=== PATIENT | female | born 1975 | race Caucasian/White ===

== ENCOUNTER 2018-12-26 05:01 | Emergency (ER) | payer BC, SELFPAY ==
[2018-12-26] VITALS (11 sets, daily range): BP systolic 88–124; BP diastolic 40–75; PULSE 73–102; RESP 16–18; TEMP 36.7–37; O2SAT 96–100; BMI 27.2
--- NOTE | 2018-12-26 05:50 | PC.NURSE ---
Pt has swollen painful left knee with positive Homans sign. Pedal and post tibial pulses are palpable and Cap refill is < 3 sec.
[2018-12-26 06:07] LABS: Basophils % 0.2 % (0.1-2.0); Eosinophils % 0.2 % (0.1-12.0); Hematocrit 33.9 % (37.0-47.0); Hemoglobin 11.1 g/dL (12.2-16.2); Lymphocytes # 0.7 K/mm3 (0.7-4.5); Lymphocytes % 12.5 % (10-50); Mean Corpuscular HGB Conc 32.8 g/dL (31.8-35.4); Mean Corpuscular Hemoglobin 26.5 pg (27.0-31.2); Mean Corpuscular Volume 80.9 fl (81-99); Monocytes # 0.4 K/mm3 (0.1-1.0); Monocytes % 6.6 % (1.7-9.3); Neutrophils # 4.6 K/mm3 (1.8-7.8); Neutrophils % 80.5 % (37.0-80.0); Platelet Count 186 K/mm3 (142-424); Red Blood Count 4.18 M/mm3 (4.20-5.40); Red Cell Distribution Width 15.2 % (11.5-17.5); White Blood Count 5.7 K/mm3 (4.8-10.8)
--- NOTE | 2018-12-26 06:10 | PC.NURSE ---
MERY BUTT at bedside.
[2018-12-26 06:13] LABS: Activated Partial Thrombo Time 25.6 seconds (23.6-34.0); INR 1.04 (0.9-1.1); Prothrombin Time 10.7 seconds (9.4-11.8)
--- NOTE | 2018-12-26 06:15 | NVE_ITS ---
Venous Exam Indications: 729.5 Pain in limb. IMPRESSIONS 1. There is no evidence of significant Reflux. 2. No evidence of deep or superficial vein thrombosis involving the left lower extremity Left lower extremity venous duplex evaluation. Doppler flow study including spectral analysis, color and yeager scale imaging. Location: Vascular laboratory. Patient status: Outpatient. Tables: Venous flow and imaging: + +-------+ + Location Overall Flow properties + +-------+ + Left common femoral Patent Normal phasicity; spontaneous; normal augmentation; compressible + +-------+ + Left saphenofemoral junction Patent Compressible + +-------+ + Left profunda femoral Patent Compressible + +-------+ + Left femoral Patent Normal phasicity; spontaneous; normal augmentation; compressible + +-------+ + Left greater saphenous Patent Normal phasicity; spontaneous; normal augmentation; compressible + +-------+ + Left popliteal Patent Normal phasicity; spontaneous; normal augmentation; compressible + +-------+ + Left posterior tibial Patent Compressible + +-------+ + Left peroneal Patent Compressible + +-------+ + Left gastrocnemius Patent Compressible + +-------+ + Left soleal Patent Compressible + +-------+ + (Report amended ) Electronically signed by: Florencio Guevara [id number]
[2018-12-26 06:16] LABS: Alanine Aminotransferase 23 U/L (12-78); Albumin Level 3.8 gm/dL (3.4-5.0); Albumin/Globulin Ratio 1.1 (1.1-1.8); Alkaline Phosphatase 28 U/L (46-116); Anion Gap 13.9 mEq/L (5-15); Aspartate Amino Transferase 10 U/L (15-37); Bilirubin,Total 0.8 mg/dL (0.2-1.0); Blood Urea Nitrogen 22 mg/dL (7-18); Calcium 8.8 mg/dL (8.5-10.1); Carbon Dioxide 27 mmol/L (21.0-32.0); Chloride 103 mmol/L (98-107); Creatinine Clearance Estimated 109 mL/min (50-200); Creatinine,Serum 0.81 mg/dL (0.55-1.02); Estimated Glomerular Filt Rate 76 ml/min (>60); GFR (African American) 93 ML/MIN (>60); Globulin 3.5 gm/dl (1.3-3.2); Glucose 113 mg/dL (74-106); Potassium 3.9 mmoL/L (3.5-5.1); Sodium 140 mmol/L (136-145); Total Protein,Serum 7.3 gm/dL (6.4-8.2)
--- NOTE | 2018-12-26 06:38 | PC.NURSE ---
Dr. Moeller is speaking to Dr. Mckeon regarding the pt.
--- NOTE | 2018-12-26 06:42 | PC.NURSE ---
Pt aware of need for UA. States she doesn't need to go at this time. ER MD at bedside.
[2018-12-26 06:53] LABS: Erythrocyte Sedimentation Rate 31 mm/hr (0-20)
--- NOTE | 2018-12-26 07:15 | PC.NURSE ---
shift change report received from TYRELL Barone- [facility] ER MD has spoken with ortho court commissioner () and she will be coming in to see the pt in the ER. [facility] staff has notified court commissioner CV lab of doppler order and they should be here around 0830 for doppler on pt.
--- NOTE | 2018-12-26 07:29 | HMH.EDLOEX ---
ED Disposition Clinical Impression: Knee effusion, left Injury of knee, ligament Qualifiers: Encounter type: initial encounter Laterality: left Qualified Code(s): S89.92XA - Unspecified injury of left lower leg, initial encounter Disposition: Home, Self-Care Condition on Discharge: Good Instructions: DI for Knee Pain Additional Instructions: limited wt bearing and follow up with ortho Prescriptions: Tramadol HCl [Ultram 50mg tablet] 50 mg PO TID PRN #15 tab PRN Reason: Moderate To Severe Pain Referrals: Provider,MD Heena [Primary Care Provider] - Selam Russ MD [Staff Physician] - - Critical Care Critical Care Time: No Attestation: On 12/26/18, the high probability of a clinically significant, sudden or life threatening deterioration of the following system(s) required my full and direct attention, intervention and personal management. The time I documented below is in addition to time spent performing reported procedures but includes the following listed in this critical care notation. Medical Decision Making - Medical Records Medical records reviewed: Yes: I reviewed the patient's medical records. - Mark Inquiry Pt receiving controlled substance: No Vital Signs: 12/26/18 05:22 12/26/18 06:02 12/26/18 06:30 Temperature 98.6 F Temperature Source Oral Pulse Rate [Right] 102 H 84 79 Respiratory Rate 18 16 16 Blood Pressure [Right Arm] 103/41 L 88/50 L 89/57 L Blood Pressure Mean [Right Arm] 61 62 67 Blood Pressure Source [Right Arm] Automatic Cuff Automatic Cuff Automatic Cuff Blood Pressure Position [Right Arm] Sitting Sitting Sitting 02 Sat by Pulse Oximetry 100 98 99 Oxygen Delivery Method Room Air Room Air Room Air 12/26/18 07:00 12/26/18 07:57 12/26/18 08:22 Temperature Temperature Source Pulse Rate [Right] 77 75 84 Respiratory Rate 18 18 18 Blood Pressure [Right Arm] 94/61 L 93/55 L 102/64 L Blood Pressure Mean [Right Arm] 72 67 76 Blood Pressure Source [Right Arm] Automatic Cuff Automatic Cuff Automatic Cuff Blood Pressure Position [Right Arm] Sitting Sitting 02 Sat by Pulse Oximetry 98 97 98 Oxygen Delivery Method Room Air Room Air Room Air - Lab Data Lab results reviewed: Yes: I reviewed the patient's lab results. Lab Results 12/26/18 05:30: WBC 5.7, RBC 4.18 L, Hgb 11.1 L, Hct 33.9 L, MCV 80.9 L, MCH 26.5 L, MCHC 32.8, RDW 15.2, Plt Count 186, MPV 9.0, Neut % (Auto) 80.5 H, Lymph % (Auto) 12.5, [place] % (Auto) 6.6, Eos % (Auto) 0.2, Baso % (Auto) 0.2, Neut # (Auto) 4.6, Lymph # (Auto) 0.7, [place] # (Auto) 0.4, Eos # (Auto) 0.0, Baso # (Auto) 0.0, ESR 31 H 12/26/18 05:30: PT 10.7, INR 1.04, APTT 25.6 12/26/18 05:30: Sodium 140, Potassium 3.9, Chloride 103, Carbon Dioxide 27, Anion Gap 13.9, BUN 22 H, Creatinine 0.81, Estimated Creat Clear 109, Estimated GFR 76, Est GFR ( Amer) 93, Glucose 113 H, Calcium 8.8, Total Bilirubin 0.8, AST 10 L, ALT 23, Alkaline Phosphatase 28 L, C-Reactive Protein 4.0 H, Total Protein 7.3, Albumin 3.8, Globulin 3.5 H, Albumin/Globulin Ratio 1.1 Result diagrams: 12/26/18 05:30 12/26/18 05:30 Orders (Tests/Meds): ED MEDICATIONS Discontinued Medications Generic Name Dose Route Start Last Admin Trade Name Freq PRN Reason Stop Dose Admin Sodium Chloride 1,000 mls @ 999 mls/hr 12/26/18 05:45 12/26/18 05:39 Sod Chlor 0.9% 1000ml Bag IV 12/26/18 06:45 999 mls/hr .Q1H1M [place] Administration Ketorolac Tromethamine 30 mg 12/26/18 05:37 12/26/18 05:38 Toradol 30mg/Ml Vial IV 12/26/18 05:38 30 mg ONCE ONE Administration Ondansetron HCl 4 mg 12/26/18 05:37 12/26/18 05:38 Zofran 4mg/2ml Vial IV 12/26/18 05:38 4 mg ONCE ONE Administration ORDERS Category Date Time Status Knee XR left 3 views [XR knee LT 3V] Stat Exams 12/26/18 08:28 Taken Urine , HCG Qual. Stat Lab 12/26/18 05:34 Ordered CA venous doppler LE LT Stat Y 12/26/18 06:15 Ordered - Radiology Data
--- NOTE | 2018-12-26 07:33 | ED_ITS ---
ED Disposition Clinical Impression: Knee effusion, left Injury of knee, ligament Qualifiers: Encounter type: initial encounter Laterality: left Qualified Code(s): S89.92XA - Unspecified injury of left lower leg, initial encounter Disposition: Home, Self-Care Condition on Discharge: Good Instructions: DI for Knee Pain Additional Instructions: limited wt bearing and follow up with ortho Prescriptions: Tramadol HCl [Ultram 50mg tablet] 50 mg PO TID PRN #15 tab PRN Reason: Moderate To Severe Pain Referrals: Provider,MD Heena [Primary Care Provider] - Selam Russ MD [Staff Physician] - - Critical Care Critical Care Time: No Attestation: On 12/26/18, the high probability of a clinically significant, sudden or life threatening deterioration of the following system(s) required my full and direct attention, intervention and personal management. The time I documented below is in addition to time spent performing reported procedures but includes the following listed in this critical care notation. Medical Decision Making - Medical Records Medical records reviewed: Yes: I reviewed the patient's medical records. - Mark Inquiry Pt receiving controlled substance: No Vital Signs: 12/26/18 05:22 12/26/18 06:02 12/26/18 06:30 Temperature 98.6 F Temperature Source Oral Pulse Rate [Right] 102 H 84 79 Respiratory Rate 18 16 16 Blood Pressure [Right Arm] 103/41 L 88/50 L 89/57 L Blood Pressure Mean [Right Arm] 61 62 67 Blood Pressure Source [Right Arm] Automatic Cuff Automatic Cuff Automatic Cuff Blood Pressure Position [Right Arm] Sitting Sitting Sitting 02 Sat by Pulse Oximetry 100 98 99 Oxygen Delivery Method Room Air Room Air Room Air 12/26/18 07:00 12/26/18 07:57 12/26/18 08:22 Temperature Temperature Source Pulse Rate [Right] 77 75 84 Respiratory Rate 18 18 18 Blood Pressure [Right Arm] 94/61 L 93/55 L 102/64 L Blood Pressure Mean [Right Arm] 72 67 76 Blood Pressure Source [Right Arm] Automatic Cuff Automatic Cuff Automatic Cuff Blood Pressure Position [Right Arm] Sitting Sitting 02 Sat by Pulse Oximetry 98 97 98 Oxygen Delivery Method Room Air Room Air Room Air - Lab Data Lab results reviewed: Yes: I reviewed the patient's lab results. Lab Results 12/26/18 05:30: WBC 5.7, RBC 4.18 L, Hgb 11.1 L, Hct 33.9 L, MCV 80.9 L, MCH 26.5 L, MCHC 32.8, RDW 15.2, Plt Count 186, MPV 9.0, Neut % (Auto) 80.5 H, Lymph % (Auto) 12.5, [place] % (Auto) 6.6, Eos % (Auto) 0.2, Baso % (Auto) 0.2, Neut # (Auto) 4.6, Lymph # (Auto) 0.7, [place] # (Auto) 0.4, Eos # (Auto) 0.0, Baso # (Aut o) 0.0, ESR 31 H 12/26/18 05:30: PT 10.7, INR 1.04, APTT 25.6 12/26/18 05:30: Sodium 140, Potassium 3.9, Chloride 103, Carbon Dioxide 27, Anion Gap 13.9, BUN 22 H, Creatinine 0.81, Estimated Creat Clear 109, Estimated GFR 76, Est GFR ( Amer) 93, Glucose 113 H, Calcium 8.8, Total Bilirubin 0.8, AST 10 L, ALT 23, Alkaline Phosphatase 28 L, C-Reactive Protein 4.0 H, Total Protein 7.3, Albumin 3.8, Globulin 3.5 H, Albumin/Globulin Ratio 1.1 Result diagrams: 12/26/18 05:30 12/26/18 05:30 Orders (Tests/Meds): ED MEDICATIONS Discontinued Medications Ge
--- NOTE | 2018-12-26 08:12 | PC.NURSE ---
Dr. Hogue at BS
--- NOTE | 2018-12-26 08:28 | XR_ITS ---
XR knee LT 3V HISTORY: Left knee pain ITS.REASON: increased swelling ORDERING PHYSICIAN: Montez Moeller MD PATIENT AGE: 43 years COMPARISON: None FINDINGS: The medial and lateral joint space appear normal. There is moderate calcification of the medial and lateral meniscus. The patella is intact. There is a [id number] sized effusion in the suprapatellar bursa. There is a small flabella noted. I see no fracture or loose body. IMPRESSION: Suprapatellar bursal effusion, findings of chondrocalcinosis involving the medial and lateral meniscus, no fracture seen
--- NOTE | 2018-12-26 09:00 | PC.NURSE ---
ortho doc at bedside. pt declines invasive procedures at this time.
--- NOTE | 2018-12-26 09:05 | PC.NURSE ---
knee immobilizer placed.
--- NOTE | 2018-12-26 09:12 | PC.NURSE ---
spoke with pt regarding care: pt prefers to not take a blood thinner if not needed. wants to wait till at least her son gets back.
--- NOTE | 2018-12-26 10:04 | PC.NURSE ---
call placed to verify timeline on oil field technician, spoke with jacklyn
--- NOTE | 2018-12-26 10:06 | PC.NURSE ---
family updated that would be within the hour
--- NOTE | 2018-12-26 11:04 | PC.NURSE ---
CV cath lab technologist called at this time stated she will be here in approx 15 minutes, updating pt and family
--- NOTE | 2018-12-26 11:23 | PC.NURSE ---
vasular tech at bedside
--- NOTE | 2018-12-26 11:55 | PC.NURSE ---
pt returned from doppler
--- NOTE | 2018-12-26 11:56 | PC.NURSE ---
NEGATIVE PER YARA WITH VASCULAR.
--- NOTE | 2018-12-26 13:10 | HMH.ORTHOCON ---
*Admission Date: 12/26/18 *Chief complaint: L knee pain *History of present illness: 43yo F with a chief complaint of acute L knee pain. She does not recall a particular injury to the knee, but thinks the pain may have started last Friday when she stepped backwards while putting a cow in a chute. She does not remember any acute pain at that time, no popping or giving way. The pain started the following day and was only mild at that time. She then traveled to [place], 6.[address], returning yesterday. She awoke around 4am this morning to use the restroom and had severe pain in the L knee with difficulty bearing weight. She also had a knee effusion, but no erythema of the knee. No recent fevers, no recent illnesses. No known exposure to sick animals, no insect bites. She has never had issues with this knee before and is generally very healthy. No prior surgeries on the knee. Pain is diffuse throughout the knee, both medially and laterally, as well as over the patellar tendon. She has difficulty raising that leg on her own. No low back pain, no numbness or tingling in the LLE. Review of Systems - Review of Systems Review of systems:: pertinent systems reviewed and negative unless documented below - *Neurologic Denies seizure-like activity [facility] History I have reviewed the patient's past medical history: Yes Medical History: Denies:: Diabetes Mellitus Type 1, Diabetes Mellitus Type 2 *Have you ever received a pneumonia vaccine?: No *Have you received a flu vaccine this season?: No - *Social History Alcohol Intake: never *Occupational Status:: employed *Travel in the last 8 weeks: None - Psychiatric History Expresses thoughts of harming self/others: None Suicide Plan Description: No Plan Family Hx:: No significant family history Meds Home Medications Medication Instructions Recorded Confirmed Type Thyroid,Pork [Nature-Throid] 32.5 mg PO DAILY 03/05/18 12/26/18 History Tramadol HCl [Ultram 50mg 50 mg PO TID PRN #15 tab 12/26/18 Rx tablet] Allergies Allergy/AdvReac Type Severity Reaction Status Date / Time amoxicillin [From Amoxil] Allergy Verified 03/05/18 18:05 erythromycin base AdvReac Verified 12/26/18 05:34 Exam Vital signs and Labs for Last 24 Hours: Temp Pulse Resp BP Pulse Ox 98.1 F 73 18 124/75 96 12/26/18 12:12 12/26/18 12:12 12/26/18 12:12 12/26/18 12:12 12/26/18 11:00 Laboratory Results - last 24 hr 12/26/18 05:30: WBC 5.7, RBC 4.18 L, Hgb 11.1 L, Hct 33.9 L, MCV 80.9 L, MCH 26.5 L, MCHC 32.8, RDW 15.2, Plt Count 186, MPV 9.0, Neut % (Auto) 80.5 H, Lymph % (Auto) 12.5, [place] % (Auto) 6.6, Eos % (Auto) 0.2, Baso % (Auto) 0.2, Neut # (Auto) 4.6, Lymph # (Auto) 0.7, [place] # (Auto) 0.4, Eos # (Auto) 0.0, Baso # (Auto) 0.0, ESR 31 H 12/26/18 05:30: PT 10.7, INR 1.04, APTT 25.6 12/26/18 05:30: Sodium 140, Potassium 3.9, Chloride 103, Carbon Dioxide 27, Anion Gap 13.9, BUN 22 H, Creatinine 0.81, Estimated Creat Clear 109, Estimated GFR 76, Est GFR ( Amer) 93, Glucose 113 H, Calcium 8.8, Total Bilirubin 0.8, AST 10 L, ALT 23, Alkaline Phosphatase 28 L, C-Reactive Protein 4.0 H, Total Protein 7.3, Albumin 3.8, Globulin 3.5 H, Albumin/Globulin Ratio 1.1 I & O for Last 24 hours: Intake & Output 12/24/18 12/25/18 12/26/18 12/27/18 11:59 11:59 11:59 11:59 Weight 174 lb - *Routine Extremities Exam Comments: AAOx3, NAD L knee with moderate-large effusion but no erythema or warmth, no skin lesions or open wounds L knee is diffusely tender to palpation, particularly over: suprapatellar region, medial/lateral joint lines, and patellar tendon; no gap palpated in tendon able to passively flex the L knee to around 90 degrees before pain prohibits further motion +DF/PF/EHL LLE; able to lift L leg 2-3 off bed with pain SILT distally LLE in all distributions calf is soft LLE but tender in popliteal fossa; Valarie's produces discomfort palpable pedal pulses LLE
--- NOTE | 2018-12-26 13:14 | P.CONS_ITS ---
*Admission Date: 12/26/18 *Chief complaint: L knee pain *History of present illness: 43yo F with a chief complaint of acute L knee pain. She does not recall a particular injury to the knee, but thinks the pain may have started last Friday when she stepped backwards while putting a cow in a chute. She does n ot remember any acute pain at that time, no popping or giving way. The pain started the following day and was only mild at that time. She then traveled to [place], 6.[address], returning yesterday. She awoke around 4am this morning to use the restroom and had severe pain in the L knee with difficulty bearing weight. She also had a knee effusion, but no erythema of the knee. No recent fevers, no recent illnesses. No known exposure to sick animals, no insect bites. She has never had issues with this knee before and is generally very healthy. No prior surgeries on the knee. Pain is diffuse throughout the knee, both medially and laterally, as well as over the patellar tendon. She has difficulty raising that leg on her own. No low back pain, no numbness or tingling in the LLE. Review of Systems - Review of Systems Review of systems:: pertinent systems reviewed and negative unless documented below - *Neurologic Denies seizure-like activity [facility] History I have reviewed the patient's past medical history: Yes Medical History: Denies:: Diabetes Mellitus Type 1, Diabetes Mellitus Type 2 *Have you ever received a pneumonia vaccine?: No *Have you received a flu vaccine this season?: No - *Social History Alcohol Intake: never *Occupational Status:: employed *Travel in the last 8 weeks: None - Psychiatric History Expresses thoughts of harming self/others: None Suicide Plan Description: No Plan Family Hx:: No significant family history Meds Home Medications Medication Instructions Recorded Confirmed Type Thyroid,Pork [Nature-Throid] 32.5 mg PO DAILY 03/05/18 12/26/18 History Tramadol HCl [Ultram 50mg 50 mg PO TID PRN #15 tab 12/26/18 Rx tablet] Allergies Allergy/AdvReac Type Severity Reaction Status Date / Time amoxicillin [From Amoxil] Allergy Verified 03/05/18 18:05 erythromycin base AdvReac Verified 12/26/18 05:34 Exam Vital signs and Labs for Last 24 Hours: Temp Pulse Resp BP Pulse Ox 98.1 F 73 18 124/75 96 12/26/18 12:12 12/26/18 12:12 12/26/18 12:12 12/26/18 12:12 12/26/18 11:00 Laboratory Results - last 24 hr 12/26/18 05:30: WBC 5.7, RBC 4.18 L, Hgb 11.1 L, Hct 33.9 L, MCV 80.9 L, MCH 26.5 L, MCHC 32.8, RDW 15.2, Plt Count 186, MPV 9.0, Neut % (Auto) 80.5 H, Lymph % (Auto) 12.5, [place] % (Auto) 6.6, Eos % (Auto) 0.2, Baso % (Auto) 0.2, Neut # (Auto) 4.6, Lymph # (Auto) 0.7, [place] # (Auto) 0.4, Eos # (Auto) 0.0, Baso # ( Auto) 0.0, ESR 31 H 12/26/18 05:30: PT 10.7, INR 1.04, APTT 25.6 12/26/18 05:30: Sodium 140, Potassium 3.9, Chloride 103, Carbon Dioxide 27, Anion Gap 13.9, BUN 22 H, Creatinine 0.81, Estimated Creat Clear 109, Estimated GFR 76, Est GFR ( Amer) 93, Glucose 113 H, Calcium 8.8, Total Bilirubin 0.8, AST 10 L, ALT 23, Alkaline Phosphatase 28 L, C-Reactive Protein 4.0 H, Total Protein 7.3, Albumin 3.8, Globulin 3.5 H, Albumin/Globulin Ratio 1.1 I & O for Last 24 hours: Intake & Output 12/24/18 12/25/18 12/26/18 12/27/18 11:59 11:59 11:59 11:59
== END 2018-12-26 12:14 | disposition home or self-care (01) ==
PROVIDERS: Emergency Provider Emergency Medicine
DX: S89.92XA Unspecified injury of left lower leg, initial encounter (principal); X50.1XXA Overexertion from prolonged static or awkward postures, initial encounter; Y92.89 Other specified places as the place of occurrence of the external cause
CPT/HCPCS: 73562; 80053; 85025; 85610; 85651; 85730; 86140; 93971; 96365; 96374; 96375; 99284; J2405

== ENCOUNTER 2020-12-16 18:19 | Emergency (ER) | payer OTHER, SELFPAY ==
[2020-12-16 18:41] VITALS: RESP 14; O2SAT 99; BMI 28.8
--- NOTE | 2020-12-16 18:51 | HMH.EDUTC ---
[facility] [place] Disposition Clinical Impression: Acute maxillary sinusitis Qualifiers: Recurrence: non-recurrent Qualified Code(s): J01.00 - Acute maxillary sinusitis, unspecified Disposition: Home, Self-Care Condition on Discharge: Good Instructions: Sinusitis, DI for Sinusitis Additional Instructions: Start antibiotic patient to take as ordered for a full length of time even if you feel better. Sinus infections do not get better overnight. It may take 2-3 days to notice much improvement so be sure to use conservative measures as discussed for symptoms. Flonase 1 spray each nostril daily to help with nasal congestion, sinus and ear pressure/information Increase fluids Humidifier/vaporizer as needed Tylenol and ibuprofen as needed for fever or pain. If symptoms do not improve or get worse return or be seen in the ER Follow-up with primary care this week Prescriptions: cephALEXin [Cephalexin 500mg Tab] 500 mg PO BID 7 Days #14 tab Transmission Status: Pending to [facility] #[id number] Fluticasone Propionate [Flonase 50mcg nasal spray 16gm] 1 spr NS DAILY 14 Days #1 bottle Transmission Status: Pending to [facility] #[id number] Referrals: Harriet Rosario [Primary Care Provider] - Time of Disposition: 18:55 Medical Decision Making - Mark Inquiry Pt receiving controlled substance: No Vital Signs: 12/16/20 18:41 Respiratory Rate 14 02 Sat by Pulse Oximetry 99 Oxygen Delivery Method Room Air [facility] [place] HPI - General Chief complaint: Urgent Treatment Center Stated complaint: possible sinus infection Time Seen by Provider: 12/16/20 18:51 Mode of Arrival: Ambulatory Source of Information: Patient Limitations: No Limitations Description of Symptoms (Recalled from Triage Doc. by RN): Sinus/Congestion HEENT Symptoms (Recalled from RN notes): Yes Resp Symptoms (Recalled from RN notes): No Skin Symptoms (Recalled from RN notes): No MS Symptoms (Recalled from RN notes): No Functional Status (Recalled from RN notes): na - History of Present Illness Provider Complaint: 45 yr old female presents for sinus pressure,sinus congestion, dental pain and fausto ear pain for 1wk. pt states she cleaned out barn last week and since then has been delaing with sinus pressure. - Related Data Home Medications Medication Instructions Recorded Confirmed Thyroid,Pork [Nature-Throid] 32.5 mg PO DAILY 03/05/18 06/23/19 Previous Rx's Medication Instructions Recorded Cefdinir [Omnicef 300mg Capsule] 300 mg PO BID #20 cap 06/23/19 Ondansetron [Zofran 4mg ODT] 4 mg PO Q8HP PRN #20 tab.rapdis 06/23/19 predniSONE [Deltasone 10mg tablet] 10 mg PO BID 3 Days #6 tab 06/23/19 Fluticasone Propionate [Flonase 1 spr NS DAILY 14 Days #1 bottle 12/16/20 50mcg nasal spray 16gm] cephALEXin [Cephalexin 500mg Tab] 500 mg PO BID 7 Days #14 tab 12/16/20 Allergies Allergy/AdvReac Type Severity Reaction Status Date / Time amoxicillin [From Amoxil] Allergy Verified 03/05/18 18:05 erythromycin base AdvReac Verified 12/26/18 05:34 - Worker's Comp Is this a Worker's Comp case?: No [facility] History - Hepatitis A Screen Drug use history?: No High risk sexual behaviors?: No History of sexually transmitted infection?: No Currently employed?: 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 No Do you have indoor plumbing?: Yes Do you have electricity?: Yes Attestation statement:: This patient has been screened for Hepatitis A risk factors. I have reviewed the patient's past medical history: Yes Medical History: Denies:: Diabetes Mellitus Type 1, Diabetes Mellitus Type 2 - Social History Alcohol Intake: never Occupational Status: employed Family Hx:: No significant family history ROS Obtained: Yes Systems reviewed as appropriate & no additional complaints - Constitutional Constitutional: Reports system reviewed and no additional complaints, except as docu, Denies body ache, Denies chills, Denies fever(s) - Eyes Eyes: Reports system reviewed an
[2020-12-16 19:09] VITALS: BP 136/84; PULSE 72; RESP 16; TEMP 37.1; O2SAT 99
== END 2020-12-16 19:10 | disposition home or self-care (01) ==
PROVIDERS: Emergency Provider Nurse Practitioner Family; PCP Nurse Practitioner Adult Health
DX: J01.00 Acute maxillary sinusitis, unspecified (principal)
CPT/HCPCS: 99202; G0463

== ENCOUNTER 2021-02-18 09:16 | Emergency (ER) | payer OTHER, SELFPAY ==
[2021-02-18 09:20] VITALS: BP 126/70; PULSE 81; RESP 18; TEMP 36.8; O2SAT 99; BMI 28.3
--- NOTE | 2021-02-18 09:30 | HMH.EDUTC ---
[facility] – [place] Disposition Clinical Impression: Sinusitis Qualifiers: Sinusitis location: unspecified location Chronicity: unspecified Qualified Code(s): J32.9 - Chronic sinusitis, unspecified Disposition: Home, Self-Care Condition on Discharge: Good Instructions: Sinusitis, DI for Sinusitis Additional Instructions: *Monitor Temp, Over the counter Motrin or Tylenol as directed/as needed Tylenol every 4 hours and Motrin every 6 hours (as long as your family doctor has told you that you can take it) for fever or pain. and straight to ER if unable to lower temp less than 101.0 after medication given *Warm fluids like tea with honey may help to soothe the throat and open up nasal congestion *Sleep elevated *Humidifier/Vaporizer *Flonase 2 sprays in each nostril daily but be aware that it may take 2-3 days before you notice improvement Take medication as prescribed Follow up with your Family Doctor if no improvement or any worsening of symptoms Follow up IMMEDIATELY for new or worsening symptoms or no Noticeable improvement over the next 48-72 hours. 911 for difficulty breathing or swallowing Prescriptions: methylPREDNISolone [Medrol 4mg tab] 4 mg PO DIRECTED #21 tab Transmission Status: Pending to [facility] # Azithromycin [Z-Maxim 250mg Tab] 250 mg PO DIRECTED #6 tab Transmission Status: Pending to [facility] # Referrals: Brynn Omer [Primary Care Provider] - As needed Time of Disposition: 09:46 Medical Decision Making - Mark Inquiry Pt receiving controlled substance: No Mark was queried for this patient: No Vital Signs: 02/18/21 09:20 Temperature 98.2 F Temperature Source Oral Pulse Rate [Right Brachial] 81 Respiratory Rate 18 Blood Pressure [Right Arm] 126/70 Blood Pressure Mean [Right Arm] 88 Blood Pressure Source [Right Arm] Automatic Cuff Blood Pressure Position [Right Arm] Sitting 02 Sat by Pulse Oximetry 99 Oxygen Delivery Method Room Air Medical Decision Narrative: Patient reports that erythromycin makes her sick at her stomach but she has taken a zpack in the past with reactions or complications State last 2 times she was treated for sinus infection she was given Doxy and didnt clear it up [facility] – [place] HPI - General Stated complaint: congestion,sinus problems Time Seen by Provider: 02/18/21 09:30 Mode of Arrival: Ambulatory Source of Information: Patient Limitations: No Limitations Description of Symptoms (Recalled from Triage Doc. by RN): PATIENT C/O SINUS CONGESTION WITH BROWN DRAINAGE X 2 DAYS HEENT Symptoms (Recalled from RN notes): Yes Resp Symptoms (Recalled from RN notes): No Skin Symptoms (Recalled from RN notes): No MS Symptoms (Recalled from RN notes): No Functional Status (Recalled from RN notes): WNL - History of Present Illness Provider Complaint: Patient states that she started having sinus congestion and pain about a week and half ago State thats she started taking over the counter medications and it helped a little at first but started getting worse about 2 days ago with sinus pain and pressure and states now she is blowing out brownish colored mucous and having pressure behind her eyes - Related Data Home Medications Medication Instructions Recorded Confirmed Thyroid,Pork [Compression Molding Machine Tender Thyroid] 1 tab PO DAILY 02/18/21 02/18/21 Previous Rx's Medication Instructions Recorded Azithromycin [Z-Maxim 250mg Tab] 250 mg PO DIRECTED #6 tab 02/18/21 methylPREDNISolone [Medrol 4mg 4 mg PO DIRECTED #21 tab 02/18/21 tab] Allergies Allergy/AdvReac Type Severity Reaction Status Date / Time amoxicillin [From Amoxil] Allergy Verified 03/05/18 18:05 erythromycin base AdvReac Verified 02/18/21 09:46 - Worker's Comp Is this a Worker's Comp case?: No [facility] History - Hepatitis A Screen Drug use history?: No High risk sexual behaviors?: No History of sexually transmitted infection?: No Currently employed?: 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
[2021-02-18 09:45] VITALS: BP 126/70; PULSE 81; RESP 18; TEMP 36.8; O2SAT 99
== END 2021-02-18 09:50 | disposition home or self-care (01) ==
PROVIDERS: Emergency Provider Nurse Practitioner; PCP Family Medicine
DX: J32.9 Chronic sinusitis, unspecified (principal)
CPT/HCPCS: 99202; G0463

== ENCOUNTER → 2021-07-13 09:06 | Outpatient (CLI) | payer OTHER, SELFPAY ==
[2021-07-13 09:32] LABS: Basophils % 0.7 % (0.1-2.0); Eosinophils # 0.1 K/mm3 (0.0-0.4); Eosinophils % 1.8 % (0.1-12.0); Hematocrit 40.6 % (37.0-47.0); Hemoglobin 13.3 g/dL (12.2-16.2); Lymphocytes # 1.2 K/mm3 (0.7-4.5); Lymphocytes % 25.4 % (10-50); Mean Corpuscular HGB Conc 32.8 g/dL (31.8-35.4); Mean Corpuscular Hemoglobin 30.4 pg (27.0-31.2); Mean Corpuscular Volume 92.6 fl (81-99); Mean Platelet Volume 9.9 fl (7.4-10.4); Monocytes # 0.2 K/mm3 (0.1-1.0); Monocytes % 4.9 % (1.7-9.3); Neutrophils % 67.2 % (37.0-80.0); Platelet Count 200 K/mm3 (142-424); Red Blood Count 4.39 M/mm3 (4.20-5.40); Red Cell Distribution Width 14.6 % (11.5-17.5); White Blood Count 4.5 K/mm3 (4.8-10.8)
[2021-07-13 10:01] LABS: Chloride 102 mmol/L (98-107); Sodium 139 mmol/L (136-145)
[2021-07-13 10:02] LABS: Potassium 4.3 mmoL/L (3.5-5.1)
[2021-07-13 10:04] LABS: Alanine Aminotransferase 19 U/L (12-78); Albumin Level 4.3 g/dl (3.5-5.0); Albumin/Globulin Ratio 1.7 (1.1-1.8); Alkaline Phosphatase 45 U/L (38-126); Anion Gap 10.3 mEq/L (5-15); Aspartate Amino Transferase 26 U/L (14-36); Bilirubin,Total 1.1 mg/dl (0.2-1.3); Blood Urea Nitrogen 13 mg/dl (7-17); Calcium 9.2 mg/dl (8.4-10.2); Carbon Dioxide 31 mmol/L (22.0-30.0); Cholesterol 192 mg/dl (140-200); Estimated Glomerular Filt Rate 107 ml/min (>60); GFR (African American) 129 ML/MIN (>60); Globulin 2.5 g/dL (1.3-3.2); Glucose 88 mg/dl (74-100); Iron 102 ug/dL (37-170); Total Protein,Serum 6.8 g/dl (6.3-8.2); Triglycerides 53 mg/dl (30-150); VLDL Cholesterol 11 mg/dL (0-40)
[2021-07-13 10:05] LABS: Chol/HDL Ratio 2.2 (1-3.5); HDL Cholesterol 87 mg/dl (40-60)
[2021-07-13 10:16] LABS: Direct LDL Cholesterol 90.34 mg/dL (100-129)
[2021-07-13 10:35] LABS: Thyroid Stimulating Hormone 1.64 uIU/mL (0.465-4.68)
[2021-07-14 08:37] LABS: FSH 28.2 mIU/mL (.); Triiodothyronine (T3) Free 2.4 pg/mL (2.0-4.4)
[2021-07-20 00:07] LABS: Testosterone, Total, LC/MS 43.5 ng/dL (.)
== END ==
PROVIDERS: Visit Provider Nurse Practitioner Adult Health
DX: E03.9 Hypothyroidism, unspecified (principal); E34.9 Endocrine disorder, unspecified; E61.1 Iron deficiency; N95.1 Menopausal and female climacteric states; N92.6 Irregular menstruation, unspecified; Z79.890 Hormone replacement therapy
CPT/HCPCS: 36415; 80053; 80061; 82670; 83001; 83540; 84402; 84403; 84443; 84481; 85025

== ENCOUNTER 2023-08-23 08:51 | Emergency (ER) | payer BC, SELFPAY ==
[2023-08-23 09:05] VITALS: BP 146/79; PULSE 78; RESP 21; TEMP 36.9; O2SAT 100; BMI 28.8
--- NOTE | 2023-08-23 09:10 | EXP.UTC ---
Discharge Plan Disposition Patient Disposition: Home, Self-Care Condition: Good Prescriptions Prescriptions: New benzonatate [benzonatate] 100 mg capsule 100 mg PO TIDP PRN (Reason: Cough) Qty: 30 0RF methylprednisolone 4 mg Tablets,Dose Pack 4 mg PO DIRECTED Qty: 21 0RF cefdinir 300 mg capsule 300 mg PO BID Qty: 20 0RF No Action thyroid (pork) [GAS TREATER Thyroid] 60 mg tablet 60 mg PO DAILY Saxenda 3 mg/0.5 mL (18 mg/3 mL) pen injector 3 mg SQ WEEKLY Referrals Follow up/Referrals: Brynn Omer [Primary Care Provider] - See instructions Activity Restrictions/Add. Instructions Additional Instructions/Restrictions: Drink plenty of fluids. Take tylenol or ibuprofen for pain or fever. Take the medications as directed. Follow up with your regular doctor. GO TO THE ER FOR ANY WORSENING SYMPTOMS Clinical Impressions Clinical Impression: Sinusitis Instructions Patient Instructions: Sinusitis, DI for Sinusitis Discharge ED Provider: Burt Montes [facility] General Stated complaint: sinus pressure Time Seen by Provider: 08/23/23 09:10 History of Present Illness Provider Complaint: She states that for the past 3 day she has had worsening sinus congestion and ear pain. She denies any fever/chills/body aches. Related Data Home Medications Medication Instructions Recorded Confirmed liraglutide (weight loss) 3 mg/0.5 3 mg SQ WEEKLY 08/23/23 08/23/23 mL (18 mg/3 mL) subcut pen injector (Saxenda) thyroid (pork) 60 mg tablet (GAS TREATER 60 mg PO DAILY 08/23/23 08/23/23 Thyroid) Previous Rx's Medication Instructions Recorded benzonatate 100 mg capsule 100 mg PO TIDP PRN Cough #30 caps 08/23/23 cefdinir 300 mg capsule 300 mg PO BID #20 caps 08/23/23 methylprednisolone 4 mg tablets in 4 mg PO DIRECTED #21 tabs 08/23/23 a dose pack Allergies Allergy/AdvReac Type Severity Reaction Status Date / Time amoxicillin [From Amoxil] Allergy Verified 03/05/18 18:05 erythromycin base AdvReac Verified 02/18/21 09:46 [facility] Disclaimer: The information contained in this section may have been updated after the patient was seen, as this information can be updated by other users. Medical History (Updated 08/23/23 @ 09:31 by Burt Montes APRN) Anxiety Depression Migraine Surgical History (Updated 08/23/23 @ 09:15 by Ciara De Dios RN) H/O bilateral breast reduction surgery History of section History of cholecystectomy Social History Smoking Status: Never smoker alcohol intake: never current occupational status: other Travel in the last 8 weeks: None ROS Obtained: Yes All systems reviewed & no additional complaints except as documented Constitutional Constitutional: Reports poor appetite Eyes Eyes: Reports system reviewed and no additional complaints, except as documented ENT Ears, Nose, Mouth, and Throat: Reports as per HPI Cardiovascular Cardiovascular: Reports system reviewed and no additional complaints, except as documented and Denies chest pain Respiratory Respiratory: Denies shortness of breath, Denies chest congestion, Reports cough, Denies stridor and Denies wheezing Gastrointestinal Gastrointestingal: Reports system reviewed and no additional complaints, except as documented; Denies abdominal pain, diarrhea or vomiting Musculoskeletal Musculoskeletal: Reports system reviewed and no additional complaints, except as documented and Denies arthralgias Integumentary/Breasts Skin/Breast: Reports system reviewed and no additional complaints, except as documented and Denies rash Neurologic Neurologic: Denies paresthesias Allergic/Immunologic Allergic/Immunologic: Denies wheezing Physical Exam General General appearance: alert and in no apparent distress Eye Eye exam: Present normal appearance, PERRL and EOMI ENT ENT exam: Present mucous membranes moist and normal external ear exam Expanded ENT Exam External ear exa
[2023-08-23 09:35] VITALS: BP 146/79; PULSE 78; RESP 21; TEMP 36.9; O2SAT 100
== END 2023-08-23 09:38 | disposition home or self-care (01) ==
PROVIDERS: Emergency Provider Nurse Practitioner Family; PCP Family Medicine
DX: J01.90 Acute sinusitis, unspecified (principal); R05.9 Cough, unspecified; H92.09 Otalgia, unspecified ear
CPT/HCPCS: 99212; 99214; G0463

== ENCOUNTER 2023-11-02 10:54 | Emergency (ER) | payer BC, SELFPAY ==
[2023-11-02 11:00] VITALS: BP 122/79; PULSE 86; RESP 18; TEMP 36.9; O2SAT 100; BMI 29.0
--- NOTE | 2023-11-02 11:19 | ED_ITS ---
Discharge Plan Disposition Patient Disposition: Home, Self-Care Condition: Good Prescriptions Prescriptions: New pseudoephedrine HCl 30 mg tablet 30 mg PO Q6HP PRN (Reason: Congestion) Qty: 30 0RF fluticasone propionate [fluticasone propionate] 50 mcg/actuation spray,suspension 2 spr intranasal DAILY 30 Days Qty: 120 0RF doxycycline hyclate [doxycycline hyclate] 100 mg capsule 100 mg PO Q12 10 Days Qty: 20 0RF No Action thyroid (pork) [QUALITY ASSOCIATE Thyroid] 60 mg tablet 60 mg PO DAILY Saxenda 3 mg/0.5 mL (18 mg/3 mL) pen injector 3 mg SQ WEEKLY Referrals Follow up/Referrals: Brynn Omer [Primary Care Provider] - See instructions Activity Restrictions/Add. Instructions Additional Instructions/Restrictions: Drink plenty of fluids. Take tylenol or ibuprofen for pain or fever. Take the medications as directed. Follow up with your regular doctor. GO TO THE ER FOR ANY WORSENING SYMPTOMS Clinical Impressions Clinical Impression: Serous otitis media Instructions Patient Instructions: Middle Ear Infection, Doxycycline, Pseudoephedrine, Fluticasone Nasal [place] Discharge ED Provider: Burt Montes [facility] [place] HPI General Stated complaint: right ear pain Mode of Arrival: Ambulatory Source of Information: Patient Limitations: No Limitations Time Seen by Provider: 11/02/23 10:58 Description of Symptoms (Recalled from Triage Doc. by RN): Pt's has been having ear pain for about a month. She is complaining of bilateral ear pain. HEENT Symptoms (Recalled from RN notes): Yes Resp Symptoms (Recalled from RN notes): No Skin Symptoms (Recalled from RN notes): No MS Symptoms (Recalled from RN notes): No Functional Status (Recalled from RN notes): n/a History of Present Illness Provider Complaint: She states that she has had ear pain for the past 1 months. She was here when her symptoms first began. She took the antibiotics but she did not take the prescribed steroids. She states that she did not get any better. She refuses oral and injected steroids today. Related Data Home Medications Medication Instructions Recorded Confirmed liraglutide (weight loss) 3 mg/0.5 3 mg SQ WEEKLY 08/23/23 11/02/23 mL (18 mg/3 mL) subcut pen injector (Saxenda) thyroid (pork) 60 mg tablet (QUALITY ASSOCIATE 60 mg PO DAILY 08/23/23 11/02/23 Thyroid) Previous Rx's Medication Instructions Recorded doxycycline hyclate 100 mg capsule 100 mg PO Q12 10 days #20 caps 11/02/23 fluticasone propionate 50 2 spr intranasal DAILY 30 days 11/02/23 mcg/actuation nasal #120 ea spray,suspension pseudoephedrine HCl 30 mg tablet 30 mg PO Q6HP PRN Congestion #30 11/02/23 tabs Allergies Allergy/AdvReac Type Severity Reaction Status Date / Time amoxicillin [From Amoxil] Allergy Verified 11/02/23 11:10 erythromycin base AdvReac Verified 11/02/23 11:10 Worker's Comp Is this a Worker's Comp case?: No [facility] Disclaimer: The information contained in this section may have been updated after the patient was seen, as this information can be updated by other users. Medical History (Updated 11/02/23 @ 11:42 by Burt Montes APRN) Anxiety Depression Migraine Surgical History H/O bilateral breast reduction surgery History of section History of cholecystectomy Social History Smoking Status: Never smoker alcohol intake: never current occupational status: other Travel in the last 8 weeks: None ROS Obtained: Yes All systems reviewed & no additional complaints except as documented Constitutional Constitutional: Denies chills, Reports fever(s) and Reports poor appetite Eyes Eyes: Denies eye discharge ENT Ears, Nose, Mouth, and Throat: Denies ear discharge, Reports otalgia, Denies hearing loss, Denies sinus pain and Denies sore throat Cardiovascular Cardiovascular: Denies chest pain and Denies dyspnea Respiratory Respiratory: Denies chest congestion, Reports cough and Denies dyspnea Gastrointestinal Gastrointestingal: Denies abdominal pain, diarrhea, nausea or vomiting Musculoskeletal Musculoskeletal: Denies arthralgias Integumentary/Breasts Skin/Breast: Denies rash Physical Exam General General appearance: alert and in no apparent distress Head Head exam: atraumatic, normocephalic and normal inspection Eye Eye exam: Present normal appearance; Absent PERRL or EOMI ENT ENT exam: Present mucous membranes moist and normal external ear exam Expanded ENT Exam TM/Canal exam: Bilateral TM: effusion Nose exam: Absent sinus tenderness Nasal speculum exam: Bilateral: normal Mouth exam: Present normal external inspection and other; Absent drooling Teeth exam: Present normal inspection Throat exam: Present tonsillar erythema and tonsillomegaly Neck Neck exam: Present normal inspection, full ROM and trachea midline; Absent tenderness, meningismus or lymphadenopathy Chest Chest inspection: Present normal inspection and symmetric chest wall rise; Absent tenderness Respiratory Respiratory exam: Present normal lung sounds bilaterally; Absent respiratory distress, wheezes or stridor Cardiovascular Cardiovascular exam: Present regular rate, normal rhythm and normal heart sounds; Absent tachycardia or irregular rhythm Abdominal Exam Abdominal exam: Present soft and normal bowel sounds; Absent distention, tenderness, guarding, rebound or rigidity Extremities Exam Extremities exam: Present normal inspection and normal capillary refill; Absent tenderness, joint swelling or calf tenderness Back Exam Back exam: Present normal inspection and full ROM; Absent tenderness, CVA tenderness (R) or CVA tenderness (L) Neurological Exam Neurological exam: Present alert, oriented X3, CN II-XII intact, normal gait and reflexes normal; Absent motor sensory deficit Psychiatric Psychiatric exam: Present normal affect and normal mood Skin Skin exam: Present warm, dry, intact and normal color Lymphatic Lymphatic Findings: no adenopathy Medical Decision Making Medical Records Medical records reviewed: No I reviewed the patient's medical records. Mark Inquiry Pt receiving controlled substance: No Vital Signs: 11/02/23 11:00 Temperature 98.5 F Temperature Source Oral Pulse Rate [Right Radial] 86 Respiratory Rate 18 Blood Pressure [Right Arm] 122/79 Blood Pressure Mean [Right Arm] 93 Blood Pressure Source [Right Arm] Automatic Cuff Blood Pressure Position [Right Arm] Sitting 02 Sat by Pulse Oximetry 100 Oxygen Delivery Method Room Air
[2023-11-02 11:54] VITALS: BP 122/79; PULSE 86; RESP 18; TEMP 36.9; O2SAT 100
== END 2023-11-02 11:53 | disposition home or self-care (01) ==
PROVIDERS: Emergency Provider Nurse Practitioner Family; PCP Family Medicine
DX: H65.03 Acute serous otitis media, bilateral (principal)
CPT/HCPCS: 99212; 99214; G0463

== ENCOUNTER 2023-12-06 08:42 | Emergency (ER) | payer BC, SELFPAY ==
[2023-12-06 08:45] VITALS: BP 124/66; PULSE 79; RESP 22; TEMP 36.8; O2SAT 98; BMI 27.7
[2023-12-06 08:59] LABS: Apearance,Urine Clear (Clear); Color,Urine Orange (Yellow)
[2023-12-06 09:00] LABS: Bilirubin,Urine 1+ (Negative); Blood, Urine 3+ (Negative); Glucose,Urine (UA) 250 (Negative); Ketones,Urine TRACE (Negative); Protein,Urine 2+ (Negative); Specific Gravity, Urine <= 1.005 (1.005-1.030); UTC Leukocyte Esterase,Urine 3+ (Negative); UTC Nitrate,Urine Positive (Negative); Urobilinogen,Urine 4 EU/dl (0.2)
[2023-12-06 09:01] VITALS: BP 124/66; PULSE 79; RESP 22; TEMP 36.8; O2SAT 98
--- NOTE | 2023-12-06 09:06 | EXP.UTC ---
Discharge Plan Disposition Patient Disposition: Home, Self-Care Condition: Good Prescriptions Prescriptions: New phenazopyridine [Pyridium] 200 mg tablet 200 mg PO Q8H 2 Days Qty: 6 0RF ondansetron 4 mg Tablet,Disintegrating 4 mg PO Q8H PRN (Reason: Nausea) Qty: 8 0RF nitrofurantoin monohyd/m-cryst [Macrobid] 100 mg Capsule 100 mg PO BID Qty: 10 0RF Rx Instructions: must administer with a meal/food No Action thyroid (pork) [METEOROLOGICAL EQUIPMENT REPAIRER Thyroid] 60 mg tablet 60 mg PO DAILY Referrals Follow up/Referrals: Brynn Omer [Primary Care Provider] - See instructions Activity Restrictions/Add. Instructions Additional Instructions/Restrictions: Drink plenty of fluids. Take tylenol or ibuprofen for pain or fever. Start the oral antibiotic later today. Take the medications as directed. Follow up with your regular doctor. GO TO THE ER FOR ANY WORSENING SYMPTOMS The pyridium will make your urine turn orange, this is an expected side effect. It will stain your clothes if it comes into contact with them. We will culture the urine. That will tell what bacteria is causing your infection and which antibiotics will treat it best. Sometimes the first antibiotic we prescribe turns out to not work against different bacteria. So, make sure you follow up within 3 days if you are not getting better. Clinical Impressions Clinical Impression: UTI (urinary tract infection) Instructions Patient Instructions: DI for Urinary Tract Infection (UTI), Urine Culture, Ceftriaxone Injection, Nitrofurantoin, Phenazopyridine Discharge ED Provider: Burt Montes [facility] General Stated complaint: possible UTI Mode of Arrival: Ambulatory Source of Information: Patient Limitations: No Limitations Time Seen by Provider: 12/06/23 09:06 Description of Symptoms (Recalled from Triage Doc. by RN): PATIENT C/O URINARY HESITANCY AND BURNING WITH URINATION THAT STARTED YESTERDAY HEENT Symptoms (Recalled from RN notes): No Resp Symptoms (Recalled from RN notes): No Skin Symptoms (Recalled from RN notes): No MS Symptoms (Recalled from RN notes): No Functional Status (Recalled from RN notes): WNL History of Present Illness Provider Complaint: She states that since yesterday she has had worsening dysuria, urinary frequency, and hesitancy. She has some mild low back pain too. Related Data Home Medications Medication Instructions Recorded Confirmed thyroid (pork) 60 mg tablet (METEOROLOGICAL EQUIPMENT REPAIRER 60 mg PO DAILY 08/23/23 12/06/23 Thyroid) Previous Rx's Medication Instructions Recorded nitrofurantoin 100 mg PO BID #10 caps 12/06/23 monohydrate/macrocrystals 100 mg capsule (Macrobid) ondansetron 4 mg disintegrating 4 mg PO Q8H PRN Nausea #8 tabs 12/06/23 tablet phenazopyridine 200 mg tablet 200 mg PO Q8H 2 days #6 tabs 12/06/23 (Pyridium) Allergies Allergy/AdvReac Type Severity Reaction Status Date / Time amoxicillin [From Amoxil] Allergy Verified 11/02/23 11:10 erythromycin base AdvReac Verified 11/02/23 11:10 Worker's Comp Is this a Worker's Comp case?: No [facility] Disclaimer: The information contained in this section may have been updated after the patient was seen, as this information can be updated by other users. Medical History (Updated 12/06/23 @ 09:15 by Burt Montes APRN) Depression Anxiety Migraine Surgical History H/O bilateral breast reduction surgery History of section History of cholecystectomy Social History Smoking Status: Never smoker alcohol intake: never current occupational status: other Travel in the last 8 weeks: None ROS Obtained: Yes All systems reviewed & no additional complaints except as documented Constitutional Constitutional: Reports system reviewed and no additional complaints, except as documented, Denies chills and Denies fever(s) Eyes Eyes: Denies eye discharge ENT Ears, Nose, Mouth, and Throat: Denies dysphagia, Denies sore throat and Denies throat swelling Cardiovascular Cardiovascular: Denies chest pain and Denies dyspnea Respiratory Respiratory: Denies chest congestion, Denies cough and Denies dyspnea Gastrointestinal Gastrointestingal: Denies abdominal pain, constipation, diarrhea, dysphagia, nausea or vomiting Genitourinary Female Genitourinary: Reports as per HPI, Reports dysuria, Reports urinary frequency, Denies urinary incontinence, Reports urinary hesitancy and Reports urinary urgency Musculoskeletal Musculoskeletal: Denies arthralgias and Reports back pain Integumentary/Breasts Skin/Breast: Denies rash Neurologic Neurologic: Denies paresthesias Allergic/Immunologic Allergic/Immunologic: Denies throat swelling Physical Exam General General appearance: alert and in no apparent distress Head Head exam: atraumatic and normocephalic Eye Eye exam: Present normal appearance, PERRL and EOMI ENT ENT exam: Present normal exam, mucous membranes moist, TM's normal bilaterally and normal external ear exam Neck Neck exam: Present normal inspection, full ROM and trachea midline; Absent tenderness, meningismus or lymphadenopathy Chest Chest inspection: Present normal inspection and symmetric chest wall rise; Absent tenderness Respiratory Respiratory exam: Present normal lung sounds bilaterally; Absent respiratory distress, wheezes or stridor Cardiovascular Cardiovascular exam: Present regular rate, normal rhythm and normal heart sounds Abdominal Exam Abdominal exam: Present soft and normal bowel sounds; Absent distention, tenderness, guarding, rebound, rigidity, incision, psoas sign, obturator sign, heel tap sign, Tatum's sign, Rovsing's sign or tenderness at McBurney's Point Extremities Exam Extremities exam: Present normal inspection, full ROM and normal capillary refill; Absent tenderness, edema, joint swelling, calf tenderness or cyanosis Back Exam Back exam: Present normal inspection and full ROM; Absent tenderness, CVA tenderness (R) or CVA tenderness (L) Neurological Exam Neurological exam: Present alert, oriented X3 and normal gait Psychiatric Psychiatric exam: Present normal affect and normal mood Skin Skin exam: Present warm, dry, intact and normal color Lymphatic Lymphatic Findings: no adenopathy Medical Decision Making Medical Records Medical records reviewed: No I reviewed the patient's medical records. Mark Inquiry Pt receiving controlled substance: No Vital Signs: 12/06/23 08:45 12/06/23 09:01 Temperature 98.2 F 98.2 F Temperature Source Oral Pulse Rate 79 Pulse Rate [Left Brachial] 79 Respiratory Rate 22 22 Blood Pressure 124/66 Blood Pressure [Left Arm] 124/66 Blood Pressure Mean [Left Arm] 85 Blood Pressure Source [Left Arm] Automatic Cuff Blood Pressure Position [Left Arm] Sitting 02 Sat by Pulse Oximetry 98 Oxygen Delivery Method Room Air Lab Data Lab results reviewed: Yes I reviewed the patient's lab results. Lab Results 12/06/23 08:56: Urine Color Wells, Urine Appearance Clear, Urine pH 5.0, Ur Specific [place] <= 1.005, Urine Protein 2+, Urine Glucose (UA) 250, Urine Ketones Trace, Urine Blood 3+, Urine Nitrate Positive A, Urine Bilirubin 1+ A, Urine Urobilinogen 4, Ur Leukocyte Esterase 3+ A Orders (Tests/Meds): ORDERS Category Date Time Status Urine Culture Stat Micro 12/06/23 09:00 Ordered
[2023-12-06] MEDS: LIDOCAINE 1% 5ML PF VIAL IM (09:20)
[2023-12-06] MEDS: cefTRIAXone 1GM VIAL 1 GM IM (09:20)
== END 2023-12-06 09:28 | disposition home or self-care (01) ==
PROVIDERS: Emergency Provider Nurse Practitioner Family; PCP Family Medicine
DX: N39.0 Urinary tract infection, site not specified (principal); B96.29 Other Escherichia coli [E. coli] as the cause of diseases classified elsewhere; M54.59 Other low back pain
CPT/HCPCS: 81003; 87086; 96372; 99212; 99214; G0463; J0696